=== PATIENT | female | born 1965 | race Caucasian/White ===

== ENCOUNTER 2021-08-30 00:51 | Emergency (ER) | payer MEDICAID ==
[~2021-08-30] VITALS: Ht 162.6 cm; Wt 63.0 kg
[~2021-08-30 00:51] MED LIST: GUAI10SY2 PO
[2021-08-30 00:53] VITALS: BP 157/75
[2021-08-30] MEDS ORDERED: LIDOcaine 1% W/epiNEPHrine 1:200,000 10ml vial IJ ONE (03:05)
[2021-08-30] MEDS ORDERED: TETanus/Pertussis (Acell)/Diphther VAC/PF (Tdap-Adult) 0.5ml syringe IMVAC ONE (03:05)
[2021-08-30] MEDS ORDERED: cephalexin 500mg capsule PO ONE (03:05)
--- NOTE | 2021-08-30 03:22 | NUR ---
PREPARED LAC TRAY AND SUTURES FOR
[2021-08-30] MEDS ORDERED: CEPH250T PO (03:33)
== END 2021-08-30 04:24 | disposition home or self-care (01) ==
LOC: ER 00:51
DX: S01.91XA Laceration without foreign body of unspecified part of head, initial encounter (principal); W18.39XA Other fall on same level, initial encounter; Y93.89 Activity, other specified; Y92.89 Other specified places as the place of occurrence of the external cause; Y99.8 Other external cause status; K21.9 Gastro-esophageal reflux disease without esophagitis; I10 Essential (primary) hypertension
CPT/HCPCS: 12011; 70450; 90471; 90715; 99284; J3490

== ENCOUNTER 2023-10-19 09:50 | Outpatient (CLI) | payer MEDICAID | END 2023-10-19 23:59 | disposition home or self-care (01) | LOC: RAD 09:50 | PROVIDERS: ATTEND Family Medicine | DX: R91.1 Solitary pulmonary nodule (principal) | CPT/HCPCS: 71046 ==

== ENCOUNTER 2024-02-29 09:58 | Outpatient (CLI) | payer MEDICAID | END 2024-02-29 23:59 | disposition home or self-care (01) | LOC: RAD 09:58 | PROVIDERS: ATTEND Family Medicine | DX: R41.82 Altered mental status, unspecified (principal) | CPT/HCPCS: 95816 ==

== ENCOUNTER 2024-03-20 08:11 | Emergency (ER) | payer MEDICAID ==
[~2024-03-20] VITALS: Ht 167.6 cm; Wt 65.0 kg
[2024-03-20 08:13] VITALS: BP 143/66; PULSE 59; RESP 16; TEMP 97.6; O2SAT 100
[2024-03-20] MEDS: cetirizine 10mg tablet PO SCH (10:44)
[2024-03-20] MEDS ORDERED: CETI10CA PO (11:17)
== END 2024-03-20 11:36 | disposition home or self-care (01) ==
LOC: ER 08:11
DX: R21 Rash and other nonspecific skin eruption (principal); I10 Essential (primary) hypertension; K21.9 Gastro-esophageal reflux disease without esophagitis; F41.9 Anxiety disorder, unspecified; F32.A Depression, unspecified
CPT/HCPCS: 87252; 99283

== ENCOUNTER 2024-06-19 15:15 | Emergency (ER) | payer MEDICAID ==
[~2024-06-19] VITALS: Ht 167.6 cm; Wt 63.6 kg
[~2024-06-19 15:15] MED LIST changes: +CETI10CA PO
[2024-06-19 15:19] VITALS: BP 119/69; PULSE 75; RESP 16; TEMP 98.5; O2SAT 100
[2024-06-19] MEDS ORDERED: CHLO118L3 TOP (17:52)
[2024-06-19] MEDS ORDERED: CEPH-585 PO (17:52)
[2024-06-19] MEDS: CefTRIAXone 1000mg IM Kit (w/lidocaine diluent) IM ONE (18:21)
== END 2024-06-19 18:29 | disposition home or self-care (01) ==
LOC: ER 15:15
DX: L03.115 Cellulitis of right lower limb (principal); I10 Essential (primary) hypertension; K21.9 Gastro-esophageal reflux disease without esophagitis; F32.A Depression, unspecified; F41.9 Anxiety disorder, unspecified
CPT/HCPCS: 96372; 99283; J0696

== ENCOUNTER 2024-07-19 16:07 | Emergency (ER) | payer MEDICAID ==
[~2024-07-19] VITALS: Ht 160 cm; Wt 50.0 kg
[~2024-07-19 16:07] MED LIST changes: +CHLO118L3 TOP
[2024-07-19 16:15] VITALS: BP 116/54; PULSE 69; RESP 16; TEMP 98; O2SAT 100
== END 2024-07-19 17:06 | disposition home or self-care (01) ==
LOC: ER 16:08
DX: S01.81XA Laceration without foreign body of other part of head, initial encounter (principal); I10 Essential (primary) hypertension; K21.9 Gastro-esophageal reflux disease without esophagitis; F32.A Depression, unspecified; F41.9 Anxiety disorder, unspecified; W19.XXXA Unspecified fall, initial encounter; Y93.89 Activity, other specified; Y92.89 Other specified places as the place of occurrence of the external cause; Y99.8 Other external cause status
CPT/HCPCS: 12011; 99282